=== PATIENT | male | born 1940 | race Caucasian/White ===

== ENCOUNTER 2022-07-31 19:54 | Inpatient (IN) ==
[2022-07-31 20:52] LABS: ABS Basophils 0.1 10^3/ul (0-0.2); ABS Eosinophils 0.1 10^3/ul (0-0.6); ABS Lymphocytes 2.5 10^3/ul (1.0-4.8); ABS Monocytes 0.7 10^3/ul (0-0.8); ABS Neutrophils 5.1 10^3/ul (1.5-7.7); Eosinophil % 0.8 %; Hematocrit 46 % (42-52); Hemoglobin 15.7 g/dL (14.0-18.0); Lymphocyte % 29.8 %; Mean Corpuscular HGB Conc 34 g/dL (31-36); Mean Corpuscular Hemoglobin 32 pg (27-31); Mean Corpuscular Volume 93 fL (80-94); Mean Platelet Volume 7.2 fL (7.4-10.4); Nucleated Red Blood Cells % 0.2; Platelet Count 146 10^3/uL (150-450); Red Blood Count 4.96 10^6 /uL (4.18-5.48); Red Cell Distribution Width 14 % (10-15); White Blood Count 8.5 10^3/uL (3.5-10.8)
[2022-07-31 21:35] LABS: Albumin 3.3 g/dL (3.2-5.2); Albumin/Globulin Ratio 1.9 (1-3); Calcium 7.8 mg/dL (8.6-10.3); Creatinine, Serum 0.89 mg/dL (0.67-1.17); Globulin 1.7 g/dL (2-4); Total Bilirubin 0.8 mg/dL (0.2-1.0)
[2022-07-31] MEDS ORDERED: Nitro 2% OINT (Nitroglycerin) 1 INCH/PAK TOPICAL ONE (21:37)
[2022-07-31 21:46] LABS: Potassium 3.9 mmol/L (3.5-5.0)
[2022-07-31 22:16] LABS: High Sensitivity Troponin 1 Hr 1873 pg/mL (<20)
[2022-07-31] MEDS ORDERED: Al Hydrox/Mg Hydrox/Simet LIQ 30 ML UDC PO PRN (22:47)
[2022-07-31] MEDS ORDERED: Potassium Chlor 20 meq TAB.ER PO ONE (23:17)
[2022-07-31 23:38] LABS: Magnesium 1.8 mg/dL (1.9-2.7)
[2022-08-01] MEDS ORDERED: Magnesium Sulfate 2 gm BAG 2 GM/50 ML BAG IVPB ONE (00:25)
[2022-08-01 00:43] LABS: Urine Appearance Cloudy; Urine Bilirubin Negative (Negative); Urine Blood Negative (Negative); Urine Color Yellow; Urine Glucose Negative (Negative); Urine Ketones Negative (Negative); Urine Nitrite Negative (Negative); Urine Protein Negative (Negative); Urine Specific Gravity 1.016 (1.002-1.030); Urine Urobilinogen Negative (Negative)
[2022-08-01 00:55] LABS: HDL Cholesterol 41.2 mg/dL
[2022-08-01 00:58] LABS: High Sensitivity Troponin 3 Hr 2719 pg/mL (<20)
[2022-08-01] MEDS ORDERED: Enoxaparin 100 MG/ML SYR SUBCUT SCH (06:00)
[2022-08-01 06:09] LABS: ABS Eosinophils 0.1 10^3/ul (0-0.6); ABS Lymphocytes 2.8 10^3/ul (1.0-4.8); ABS Monocytes 0.8 10^3/ul (0-0.8); ABS Neutrophils 4.3 10^3/ul (1.5-7.7); Eosinophil % 1.2 %; Hematocrit 43 % (42-52); Hemoglobin 14.9 g/dL (14.0-18.0); Lymphocyte % 35.3 %; Mean Corpuscular HGB Conc 34 g/dL (31-36); Mean Corpuscular Hemoglobin 32 pg (27-31); Mean Corpuscular Volume 94 fL (80-94); Mean Platelet Volume 7.6 fL (7.4-10.4); Nucleated Red Blood Cells % 0.2; Platelet Count 132 10^3/uL (150-450); Red Blood Count 4.62 10^6 /uL (4.18-5.48); Red Cell Distribution Width 14 % (10-15)
[2022-08-01 07:06] LABS: Calcium 7.1 mg/dL (8.6-10.3); Creatinine, Serum 0.9 mg/dL (0.67-1.17); Potassium 3.1 mmol/L (3.5-5.0); eGFR CKD-EPI 84.7 (>60)
[2022-08-01] MEDS ORDERED: KCL 20 MEQ/100 ML IVPREMIX 20 MEQ/100 ML BAG IV ONE (07:18)
[2022-08-01 08:01] LABS: Magnesium 2.3 mg/dL (1.9-2.7)
[2022-08-01] MEDS ORDERED: Potassium Chlor 20 meq TAB.ER PO ONE (08:15)
[2022-08-01] MEDS ORDERED: NS 0.9% 1000 ml BAG 1,000 ML IV SCH (10:00)
[2022-08-01] MEDS ORDERED: Sulfur Hexaflouride MICROSPHR 25 MG VIAL ONE (10:06)
[2022-08-01 10:30] LABS: High Sensitivity Troponin 1 Hr 2536 pg/mL (<20)
[2022-08-01] MEDS ORDERED: Midazolam 5 mg/5 ml VIAL 1 mg/ml 5 ml VIAL (5 mg) ONE (14:13)
[2022-08-01] MEDS ORDERED: VERAPAMIL 2.5 MG/ML 2 ML VIAL ** 5 mg/2 ml ONE (14:13)
[2022-08-01] MEDS ORDERED: fentaNYL 100 mcg/2 ml 50 MCG/ML VIAL ONE (14:13)
[2022-08-01] MEDS ORDERED: Heparin 1,000 UNIT/ML 10 ml (10,000 UNITS) CATHLAB/DIALYSIS ONE ×2 (14:13→15:24)
[2022-08-01] MEDS ORDERED: Iohexol 350 (CONTRAST) 100 ML PAK IV ONE ×2 (14:14)
[2022-08-01] MEDS ORDERED: Heparin 2 UNITS/ML 1000 mls 2,000 ML IV ONE (14:14)
[2022-08-01] MEDS ORDERED: nitroGLYCERIN DRIP 25,000 MCG/250 ML BTL ONE (14:14)
[2022-08-01] MEDS ORDERED: Lidocaine 1% MPF 5 ML VIAL ONE (14:14)
[2022-08-01] MEDS ORDERED: Heparin 2 UNITS/ML 1000 mls 1,000 ML IV ONE (14:15)
[2022-08-01] MEDS ORDERED: niCARdipine 0.1MG/ML IVPREMIX 20 MG/200 ML BAG IV ONE (14:15)
[2022-08-01] MEDS ORDERED: Dextran 70/Hypromellose Tears Eye Drops 15 ml BTL (for Artificials Tears) BOTH EYES PRN (16:08)
[2022-08-01] MEDS ORDERED: Ondansetron 4 mg VIAL 2 MG/ML 2 ml VIAL IV PRN (16:18)
[2022-08-01 20:45] LABS: ABS Basophils 0.1 10^3/ul (0-0.2); ABS Eosinophils 0.1 10^3/ul (0-0.6); ABS Lymphocytes 2.3 10^3/ul (1.0-4.8); ABS Monocytes 0.7 10^3/ul (0-0.8); ABS Neutrophils 3.4 10^3/ul (1.5-7.7); Hematocrit 42 % (42-52); Hemoglobin 14.3 g/dL (14.0-18.0); Lymphocyte % 35.3 %; Mean Corpuscular HGB Conc 34 g/dL (31-36); Mean Corpuscular Hemoglobin 32 pg (27-31); Mean Corpuscular Volume 94 fL (80-94); Mean Platelet Volume 7.2 fL (7.4-10.4); Nucleated Red Blood Cells % 0.1; Platelet Count 117 10^3/uL (150-450); Red Blood Count 4.52 10^6 /uL (4.18-5.48); Red Cell Distribution Width 14 % (10-15); White Blood Count 6.5 10^3/uL (3.5-10.8)
[2022-08-01 20:55] LABS: Activated Partial Thrombo Time 62.1 seconds (26.0-38.0); INR 1.13 (0.88-1.18)
[2022-08-01 21:20] LABS: Calcium 8.4 mg/dL (8.6-10.3); Creatinine, Serum 1.05 mg/dL (0.67-1.17); Creatinine, Serum 1.07 mg/dL (0.67-1.17); Potassium 3.7 mmol/L (3.5-5.0); eGFR CKD-EPI 68.9 (>60); eGFR CKD-EPI 70.4 (>60)
[2022-08-01] MEDS ORDERED: Heparin 5000 UNITS/ML 1 mL VIAL SUBCUT SCH (22:00)
[2022-08-02 06:22] LABS: ABS Eosinophils 0.1 10^3/ul (0-0.6); ABS Lymphocytes 1.9 10^3/ul (1.0-4.8); ABS Monocytes 0.8 10^3/ul (0-0.8); ABS Neutrophils 4.4 10^3/ul (1.5-7.7); Eosinophil % 0.8 %; Hematocrit 43 % (42-52); Hemoglobin 14.6 g/dL (14.0-18.0); Lymphocyte % 26.7 %; Mean Corpuscular HGB Conc 34 g/dL (31-36); Mean Corpuscular Hemoglobin 32 pg (27-31); Mean Corpuscular Volume 93 fL (80-94); Mean Platelet Volume 7.7 fL (7.4-10.4); Platelet Count 121 10^3/uL (150-450); Red Blood Count 4.62 10^6 /uL (4.18-5.48); Red Cell Distribution Width 14 % (10-15); White Blood Count 7.2 10^3/uL (3.5-10.8)
[2022-08-02 06:39] LABS: Albumin 3.5 g/dL (3.2-5.2); CO2 Carbon Dioxide 27 mmol/L (22-32); Calcium 8.5 mg/dL (8.6-10.3); Chloride 108 mmol/L (101-111); Magnesium 2.2 mg/dL (1.9-2.7); Sodium 139 mmol/L (135-145)
[2022-08-02 06:45] LABS: ALT 25 U/L (7-52); Albumin/Globulin Ratio 1.6 (1-3); Alkaline Phosphatase 40 U/L (35-149); Blood Urea Nitrogen 16 mg/dL (6-24); Creatinine, Serum 1.01 mg/dL (0.67-1.17); Globulin 2.2 g/dL (2-4); Glucose 94 mg/dL (70-100); Total Protein 5.7 g/dL (6.4-8.9); eGFR CKD-EPI 73.8 (>60)
[2022-08-02 06:46] LABS: Anion Gap 4 mmol/L (2-11)
[2022-08-02 09:51] LABS: Phosphorus 3.3 mg/dL (2.5-5.0)
[2022-08-02 12:54] VITALS: BP 128/61
== END 2022-08-02 12:30 | disposition home or self-care (01) | DRG 247 ==
LOC: ED 19:54 → EDHOLD 22:47 → SUATTDRO 22:47 → EDHOLD 08-01 14:08 → ICU 08-01 15:35
PROVIDERS: ADMIT Student in an Organized Health Care Education/Training Program; ATTEND Internal Medicine